=== PATIENT | male | born 1960 | race Caucasian/White ===

== ENCOUNTER 2019-03-09 07:08 | Inpatient (IN) ==
--- NOTE | 2019-02-14 15:12 | PAT Medication Instructions ---
Medication Instructions Date of Service February 14, 2019 Home Medications fluoxetine 20 mg PO QAM pantoprazole 40 mg PO QAM Take morning of surgery With a small sip of water, OTHERWISE NOTHING TO EAT OR DRINK AFTER MIDNIGHT: fluoxetine 20 mg PO QAM pantoprazole 40 mg PO QAM Other Notes If you have any questions please call us at [phone] or [phone] or [phone] or [phone]
--- NOTE | 2019-02-15 11:58 | Anesthesiology Consultation ---
Date of Service February 15, 2019 Assessment & Plan (1) Encounter for pre-operative examination: Awaiting surgeon-ordered PCP preop evaluation scheduled 02/2019 (Dr. Ferrer). Chart Review Chart Review: Patient seen in Pre Admission Testing Teaching & Discussion Pre-Anesthesia Teaching/Discussion Notes: Instructed NPO after midnight before surgery,except medications with 15 cc of water. Medication instructions provided according to the PAT guidelines. History Surgery Operation Date: 03/09/19 09:25 Proposed Procedures p Right Total Hip Arthroplasty - Sterling Hdz MD Height/Weight Height: 5 ft 6 in Weight: 75.1 kg Allergies Allergy/AdvReac Type Severity Reaction Status Date / Time Sulfa (Sulfonamide Allergy Severe HIVES, Unverified 02/15/19 12:19 Antibiotics) ITCHING Medications Home Medications Medication Instructions Recorded Confirmed Last Taken fluoxetine 20 mg PO QAM 02/13/19 02/13/19 Unknown pantoprazole 40 mg PO QAM 02/13/19 02/13/19 Unknown Past Medical History Medical History Anxiety Degenerative disc disease GERD (gastroesophageal reflux disease) Osteoarthritis Pre-diabetes Sleep apnea no device - insurance did not cover CPAP TMJ click Exercise / Class Metabolic Activity II 4-5 Yardwork/Stairs/Walk up hill Past Family History Family History Other Family history of diabetes mellitus Past Surgical History Surgical History History of amputation of finger Rt thumb, Rt index finger r/t farming accident History of colonoscopy History of hand surgery Rt - multiple surgeries r/t farming accident History of hernia repair as an History of tooth extraction Past Anesthesia History No Hx of Anesthesia Complications and No Family Hx of Anesthesia Complications History of PONV No Hx of PONV and No Hx of Motion Sickness Social History Smoking Status: Never smoker Do You Dip or Chew Tobacco: No (quit 5-6 years ago) Hx Alcohol Use: Yes Alcohol type: beer alcohol intake frequency: 0-2 drinks per day (1 beer/night) Hx Substance Use: No substance use type: does not use Review of Systems Patient denies chest pain, shortness of breath, dyspnea on exertion, cough, wheezing, palpitations. Physical Exam Vital Signs VITALS BP 120/76 P 66 TEMP 97.6 SP02 99%RA RESP 16 PHYSICAL Mildly decreased cervical extension Full TMJ range of motion. TMD 3 finger breaths Mallampati Score 3 Dentition: missing molars Lungs: clear throughout to auscultation Cardiac: regular rate and rhythm, no murmurs noted Spine: normal Carotid arteries: negative bruit Extremities: right hand (+ finger amputations) Testing Laboratory Results 02/15/19 12:35 02/15/19 12:35 PT 10.8 Seconds (9.0-12.0) 02/15/19 12:35 INR 1.1 (0.9-1.1) 02/15/19 12:35 Hemoglobin A1c 5.5 % (4.5-5.6) 02/15/19 12:35 Urine Color Yellow 02/15/19 Unknown Urine Appearance Clear (Clear) 02/15/19 Unknown Urine pH 5.5 (4.5-7.5) 02/15/19 Unknown Ur Specific [place] 1.023 (1.000-1.030) 02/15/19 Unknown Urine Protein Negative (Negative) 02/15/19 Unknown Urine Glucose (UA) Negative (Negative) 02/15/19 Unknown Urine Ketones 1+ (Negative) H 02/15/19 Unknown Urine Nitrite Negative (Negative) 02/15/19 Unknown Ur Leukocyte Esterase Negative (Negative) 02/15/19 Unknown Blood Type O Positive 02/15/19 12:35 Antibody Screen NEGATIVE 02/15/19 12:35 02/15/19 Unknown Urine Culture - Final Urine,Clean Catch Gram positive bacilli *No sensitivities to follow* Electrocardiogram Date: 02/15/19 NSR at 62bpm. Moderate voltage criteria for LVH, may be normal variant.
[2019-02-15 14:24] LABS: Basophils # (auto) 0.05 K/uL (0-0.2); Basophils % (auto) 0.7 %; Eosinophils # (auto) 0.07 K/uL (0-0.5); Hematocrit (blood only) 40.9 % (42-52); Hemoglobin 14.4 g/dL (14.0-18.0); Immature Granulocytes # (auto) 0.01 K/uL (0.00-0.02); Immature Granulocytes % (auto) 0.1 %; Lymphocytes # (auto) 1.55 K/uL (1.2-3.4); Lymphocytes % (auto) 21.4 %; Mean Corpuscular Hemoglobin 29.6 pg (25-34); Mean Corpuscular Hgb Conc 35.2 g/dL (32-36); Mean Corpuscular Volume 84.2 fL (80-100); Mean Platelet Volume 8.9 fL (7.4-10.4); Monocytes % (auto) 5.5 %; Neutrophils # (auto) 5.15 K/uL (1.4-6.5); Neutrophils % (auto) 71.3 %; Platelet Count 241 K/uL (130-400); RDW Coefficient of Variation 12.5 % (11.5-14.5); RDW Standard Deviation 38.2 fL (36.4-46.3); Red Blood Count 4.86 M/uL (4.7-6.1); White Blood Count 7.23 K/uL (4.8-10.8)
[2019-02-15 14:34] LABS: Albumin Level 3.7 gm/dl (3.4-5.0); BUN Creatinine Ratio 15.2 (10-20); Calcium 9.7 mg/dl (8.5-10.1); Creatinine Clr Calc Pharmacy 68.7 ml/min; Est GFR (African American) 88.8; Est GFR (Non-African American) 76.7; Estimated Average Glucose 111 mg/dl; Hemoglobin A1C 5.5 % (4.5-5.6); Potassium 4.2 mmol/L (3.5-5.1)
[2019-02-15 14:36] LABS: Appearance Urine Clear (Clear); Bilirubin Urine Negative (Negative); Blood Urine Negative (Negative); Color Urine Yellow; Glucose Urine UA Negative (Negative); Ketones Urine 1+ (Negative); Leukocyte Esterase Urine Negative (Negative); Nitrite Urine Negative (Negative); Protein Urine Negative (Negative); Specific Gravity Urine 1.023 (1.000-1.030); Urobilinogen Urine Negative (Negative); pH Urine 5.5 (4.5-7.5)
[2019-02-15 14:37] LABS: Albumin Globulin Ratio 0.9 (0.9-2); Bilirubin,Total 0.7 mg/dl (0.2-1); Total Protein 7.7 gm/dl (6.4-8.2)
[2019-02-15 14:39] LABS: INR 1.1 (0.9-1.1); Prothrombin Time 10.8 Seconds (9.0-12.0)
--- NOTE | 2019-02-15 15:16 | History & Physical Report ---
Date of Service February 15, 2019 Assessment & Plan (1) Osteoarthritis of right hip: DIAGNOSIS: Right hip osteoarthritis. PROCEDURE: Right total hip arthroplasty. PLAN: The patient is scheduled to undergo this procedure at the [facility] as an inpatient on 03/09/[address] Hdz serving as a surgeon. Risks and complications of the procedure such as infection, bleeding, pain, scarring, nerve and blood vessel damage, weakness, wound problems, stiffness, incomplete relief of symptoms, hardware failure, hardware loosening, wear, fracture, tendon or ligament injury, dislocation, leg length inequality, blood clots, embolism, heart attack, stroke and were explained to the patient during his visit today with Dr. Hdz. Informed consent to perform the procedure was obtained. We will also need to obtain preoperative medical clearance from the patient's primary care provider, Dr. Ferrer. He is scheduled to see him on 02/21. He will also need to obtain a preoperative CBC with differential, complete metabolic panel, PT, INR, blood type and screen, urinalysis, urine culture, EKG, hemoglobin A1c and a nasal culture for MRSA. The patient states he has his appointment with anesthesia at the hospital at 11:45 this morning and will receive the necessary testing at that time. The patient will be scheduled for his 2-week postoperative followup visit with myself on 03/24 at 2:30 in the afternoon. I advised the patient that we will provide him with prescriptions for pain medications, any anti-inflammatory medications upon discharge from the hospital. I advised him that he will be on aspirin 81 mg tablet twice daily for 30 days postoperatively for DVT prophylaxis. The patient states that he may have a walker that he can use, but if not, I did provide him with an order to obtain one. I also instructed him about purchasing a hip kit from either [employer] or [employer]. I provided the patient with the paperwork to obtain a handicap placard for his vehicle. We went over the hip arthroplasty packet. I advised him to review at home with his . I provided him with information about lectures that are offered by [facility] in regards to joint replacement surgery. We also talked about discharge planning and he will discuss with case management and will most likely choose to have in-home therapy for 2 weeks postoperatively. The patient was advised that he will need to take antibiotics before any dental cleanings or procedures for the remainder of his life after this surgery. I advised him that he will just need to contact our clinic and we can send a prescription to his pharmacy. The patient is to refrain from taking Advil for 7 days prior to the procedure. He can continue taking his Tylenol for pain control. I advised the patient that he will be admitted for overnight stay and as long as his pain is controlled and he does well with physical therapy, we will plan on discharging him on postoperative day 1. The patient verbalized understanding of all information provided during today's visit, thanked us for the care he has received and states if he has questions or concerns that should arise prior to his surgery date, he will contact the clinic accordingly History of Present Illness Chief Complaint: Right hip pain Primary Care Provider: Bradley Ferrer MD HISTORY OF PRESENT ILLNESS: This 58-year-old male presents to clinic today for his preoperative history and physical. The patient complains of a 4+ year history of persistent right-sided hip pain that is becoming increasingly worse over the past year. He denies any specific injury to the hip. He states that he has had steroid injections, physical therapy and used nonsteroidal agents without significant pain relief. The patient states that the pain in his hip makes it difficult for him to sleep. 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 He denies any numbness or tingling in the right lower extremity and feels that a hip replacement is necessary due to failed conservative treatments. PAST MEDICAL HISTORY: Sleep apnea, anxiety and depression, gastroesophageal reflux disease. PAST SURGICAL HISTORY: Right hand surgery and colonoscopy. FAMILY HISTORY: Positive for heart disease. ALLERGIES: THE PATIENT HAS ALLERGY TO SULFA MEDICATIONS. CURRENT MEDICATIONS USED: Fluoxetine 20 mg oral capsule 1 cap daily, pantoprazole 40 mg oral delayed release tablet 1 tab daily, [id number] Advil and [id number] Tylenol, both as needed for pain relief. SOCIAL HISTORY: The patient states that he used to be a smoker, but quit over 1 year ago, he consumes approximately 7 alcoholic beverages per week, but denies any illicit drug use. Allergies Allergy/AdvReac Type Severity Reaction Status Date / Time Sulfa (Sulfonamide Allergy Severe HIVES, Unverified 02/15/19 12:19 Antibiotics) ITCHING Home Medications Home Medications Medication Instructions Recorded Confirmed Type fluoxetine 20 mg PO QAM 02/13/19 02/13/19 History pantoprazole 40 mg PO QAM 02/13/19 02/13/19 History Past Med/Surg History Medical History Anxiety Degenerative disc disease GERD (gastroesophageal reflux disease) Osteoarthritis Pre-diabetes Sleep apnea no device - insurance did not cover CPAP TMJ click Surgical History History of amputation of finger Rt thumb, Rt index finger r/t farming accident History of colonoscopy History of hand surgery Rt - multiple surgeries r/t farming accident History of hernia repair as an infant History of tooth extraction Family History Other Family history of diabetes mellitus Social History Preferred Language: Slovenian Communication Ability: Effective Operations Systems Specialist Required: No Beliefs That Will Affect Care: None Current Living Situation: Spouse Feels Safe at Home: Yes Smoking Status: Never smoker Second Hand Exposure: Yes (as a child) ; Hx Alcohol Use: Yes Alcohol type: beer Hx Substance Use: No Review of Systems All systems reviewed & are unremarkable except as noted in HPI & below Physical Exam Physical Exam: PHYSICAL EXAMINATION: Vital signs: Height is 169.5 cm, weight is 76.9 kg, pulse is 77, oxygen saturation is 97%, temperature is 36.4 degrees Celsius, blood pressure is 128/70. Skin: The patient's skin is normal in appearance. No open skin lesions or discharge. Eyes: Pupils are equal and reactive to light and accommodating. Extraocular movements are intact. Throat: Posterior pharynx is clear with absence of edema, erythema or exudate. Cardiovascular exam: The patient has a regular rate and rhythm with no murmurs or gallops appreciated. Lungs: Auscultation of lung galeas reveals clear breath sounds throughout, no wheezing, rales or rhonchi. Abdomen is nonobese, nondistended, nontender with normoactive bowel sounds. Extremities: Right hip, flexion is limited to 90 degrees, external rotation to 45 degrees, internal rotation to negative 15 degrees. Stinchfield and log roll test are both positive. The patient experiences referred pain to the groin with passive abduction and adduction of the hip. He has no tenderness over the lateral posterior aspect of the hip over the greater trochanter, but does have tenderness to deep palpation in the groin. The patient is neurovascularly intact in the right lower extremity. Neurological exam: Cranial nerves 2-12 are intact. No motor or sensory deficit. Psychological/general exam: The patient is alert and oriented x3 with proper grooming and hygiene. Results & Data Laboratory Results 02/15/19 02/15/19 02/15/19 Range/Units Unknown Unknown 12:35 WBC (4.8-10.8) K/uL RBC (4.7-6.1) M/uL Hgb (14.0-18.0) g/dL Hct (42-52) % MCV (80-100) fL MCH (25-34) pg MCHC (32-36) g/dL RDW Std Deviation (36.4-46.3) fL RDW Coeff of Michelle (11.5-14.5) % Plt Count (130-400) K/uL MPV (7.4-10.4) fL Immature Gran % (Auto) % Neut % (Auto) % Lymph % (Auto) % Cassia % (Auto) % Eos % (Auto) % Baso % (Auto) % Immature Gran # (Auto) (0.00-0.02) K/uL Neut # (Auto) (1.4-6.5) K/uL Lymph # (Auto) (1.2-3.4) K/uL Cassia # (Auto) (0.11-0.59) K/uL Eos # (Auto) (0-0.5) K/uL Baso # (Auto) (0-0.2) K/uL PT (9.0-12.0) Seconds INR (0.9-1.1) Sodium (136-145) mmol/L Potassium (3.5-5.1) mmol/L Chloride (98-107) mmol/L Carbon Dioxide (21-32) mmol/L Anion Gap (3-11) BUN (7-18) mg/dl Creatinine (0.6-1.4) mg/dl Est Cr Clr Drug Dosing ml/min Est GFR ( Amer) Est GFR (Non-Af Amer) BUN/Creatinine Ratio (10-20) Glucose (70-99) mg/dl Estimat Average Glucose mg/dl Hemoglobin A1c (4.5-5.6) % Calcium (8.5-10.1) mg/dl Total Bilirubin (0.2-1) mg/dl AST (15-37) U/L ALT (12-78) U/L Alkaline Phosphatase (45-117) U/L Total Protein (6.4-8.2) gm/dl Albumin (3.4-5.0) gm/dl Globulin (2.5-4.0) gm/dl Albumin/Globulin Ratio (0.9-2) Urine Color Yellow Urine Appearance Clear (Clear) Urine pH 5.5 (4.5-7.5) Ur Specific [place] 1.023 (1.000-1.030) Urine Protein Negative (Negative) Urine Glucose (UA) Negative (Negative) Urine Ketones 1+ H (Negative) Urine Blood Negative (Negative) Urine Nitrite Negative (Negative) Urine Bilirubin Negative (Negative) Urine Urobilinogen Negative (Negative) Ur Leukocyte Esterase Negative (Negative) Nasal Screen MRSA (PCR) Pending Blood Type Pending Antibody Screen Pending 02/15/19 02/15/19 02/15/19 Range/Units 12:35 12:35 12:35 WBC (4.8-10.8) K/uL RBC (4.7-6.1) M/uL Hgb (14.0-18.0) g/dL Hct (42-52) % MCV (80-100) fL MCH (25-34) pg MCHC (32-36) g/dL RDW Std Deviation (36.4-46.3) fL RDW Coeff of Michelle (11.5-14.5) % Plt Count (130-400) K/uL MPV (7.4-10.4) fL Immature Gran % (Auto) % Neut % (Auto) % Lymph % (Auto) % Cassia % (Auto) % Eos % (Auto) % Baso % (Auto) % Immature Gran # (Auto) (0.00-0.02) K/uL Neut # (Auto) (1.4-6.5) K/uL Lymph # (Auto) (1.2-3.4) K/uL Cassia # (Auto) (0.11-0.59) K/uL Eos # (Auto) (0-0.5) K/uL Baso # (Auto) (0-0.2) K/uL PT 10.8 (9.0-12.0) Seconds INR 1.1 (0.9-1.1) Sodium 139 (136-145) mmol/L Potassium 4.2 (3.5-5.1) mmol/L Chloride 106 (98-107) mmol/L Carbon Dioxide 25 (21-32) mmol/L Anion Gap 8.0 (3-11) BUN 16 (7-18) mg/dl Creatinine 1.07 (0.6-1.4) mg/dl Est Cr Clr Drug Dosing 68.7 ml/min Est GFR ( Amer) 88.8 Est GFR (Non-Af Amer) 76.7 BUN/Creatinine Ratio 15.2 (10-20) Glucose 88 (70-99) mg/dl Estimat Average Glucose 111 mg/dl Hemoglobin A1c 5.5 (4.5-5.6) % Calcium 9.7 (8.5-10.1) mg/dl Total Bilirubin 0.7 (0.2-1) mg/dl AST 19 (15-37) U/L ALT 18 (12-78) U/L Alkaline Phosphatase 81 (45-117) U/L Total Protein 7.7 (6.4-8.2) gm/dl Albumin 3.7 (3.4-5.0) gm/dl Globulin 4.0 (2.5-4.0) gm/dl Albumin/Globulin Ratio 0.9 (0.9-2) Urine Color Urine Appearance (Clear) Urine pH (4.5-7.5) Ur Specific [place] (1.000-1.030) Urine Protein (Negative) Urine Glucose (UA) (Negative) Urine Ketones (Negative) Urine Blood (Negative) Urine Nitrite (Negative) Urine Bilirubin (Negative) Urine Urobilinogen (Negative) Ur Leukocyte Esterase (Negative) Nasal Screen MRSA (PCR) Blood Type Antibody Screen 02/15/19 Range/Units 12:35 WBC 7.23 (4.8-10.8) K/uL RBC 4.86 (4.7-6.1) M/uL Hgb 14.4 (14.0-18.0) g/dL Hct 40.9 L (42-52) % MCV 84.2 (80-100) fL MCH 29.6 (25-34) pg MCHC 35.2 (32-36) g/dL RDW Std Deviation 38.2 (36.4-46.3) fL RDW Coeff of Michelle 12.5 (11.5-14.5) % Plt Count 241 (130-400) K/uL MPV 8.9 (7.4-10.4) fL Immature Gran % (Auto) 0.1 % Neut % (Auto) 71.3 % Lymph % (Auto) 21.4 % Cassia % (Auto) 5.5 % Eos % (Auto) 1.0 % Baso % (Auto) 0.7 % Immature Gran # (Auto) 0.01 (0.00-0.02) K/uL Neut # (Auto) 5.15 (1.4-6.5) K/uL Lymph # (Auto) 1.55 (1.2-3.4) K/uL Cassia # (Auto) 0.40 (0.11-0.59) K/uL Eos # (Auto) 0.07 (0-0.5) K/uL Baso # (Auto) 0.05 (0-0.2) K/uL PT (9.0-12.0) Seconds INR (0.9-1.1) Sodium (136-145) mmol/L Potassium (3.5-5.1) mmol/L Chloride (98-107) mmol/L Carbon Dioxide (21-32) mmol/L Anion Gap (3-11) BUN (7-18) mg/dl Creatinine (0.6-1.4) mg/dl Est Cr Clr Drug Dosing ml/min Est GFR ( Amer) Est GFR (Non-Af Amer) BUN/Creatinine Ratio (10-20) Glucose (70-99) mg/dl Estimat Average Glucose mg/dl Hemoglobin A1c (4.5-5.6) % Calcium (8.5-10.1) mg/dl Total Bilirubin (0.2-1) mg/dl AST (15-37) U/L ALT (12-78) U/L Alkaline Phosphatase (45-117) U/L Total Protein (6.4-8.2) gm/dl Albumin (3.4-5.0) gm/dl Globulin (2.5-4.0) gm/dl Albumin/Globulin Ratio (0.9-2) Urine Color Urine Appearance (Clear) Urine pH (4.5-7.5) Ur Specific [place] (1.000-1.030) Urine Protein (Negative) Urine Glucose (UA) (Negative) Urine Ketones (Negative) Urine Blood (Negative) Urine Nitrite (Negative) Urine Bilirubin (Negative) Urine Urobilinogen (Negative) Ur Leukocyte Esterase (Negative) Nasal Screen MRSA (PCR) Blood Type Antibody Screen
[~2019-03-09 07:08] MED LIST: ACETAMINOPHEN 500 MG TAB PO SCH; BUPIVACAINE 0.5 % 5 MG/1 ML PF 10ML VIAL ONE; CEFAZOLIN 2000MG 2,000 MG/15 ML SYR IV SCH; FAMOTIDINE 20 MG TAB PO SCH; LR 500ML BOLUS, THEN 15ML/HR IV SCH; LR 60ML/HR IV SCH; METOCLOPRAMIDE HCL 10 MG TABLET PO SCH; ROPIVACAINE 0.5% HCL/PF 150 MG, BUPIVACAINE 0.5% MPF 30 ML, EPINEPHrine 0.15 MG, Ketoro... INFIL SCH; SCOPOLAMINE 1.5 MG TDSY TD SCH; TRAMADOL HCL 50 MG TABLET PO SCH; TRANEXAMIC ACID 1,000 MG **IV Intra-op IV SCH; TRANEXAMIC ACID 1,000 MG **IV Pre-op IV SCH; dexAMETHasone 4 MG TAB PO SCH
[2019-03-09] MEDS ORDERED: TRANEXAMIC ACID / 0.7% NACL 1000MG/100ML BAG IV ONE (08:26)
[2019-03-09] MEDS ORDERED: fentaNYL citrate 100 MCG/2 ML VIAL ONE (08:34)
[2019-03-09] MEDS ORDERED: PROPOFOL IV EMULSION 10 MG/ML 20 ML VIAL IV ONE (08:34)
[2019-03-09] MEDS ORDERED: LIDOCAINE HCL 2% 2 ML VIAL/AMP(20MG/ML) INFIL ONE (08:34)
[2019-03-09] MEDS ORDERED: MIDAZOLAM HCL 1 MG/ML 2ML VIAL ONE ×2 (08:34→09:47)
--- NOTE | 2019-03-09 09:08 | History & Physical Bridge Note ---
Date of Service March 09, 2019 History & Physical Bridge Note I have examined the patient, reviewed the History & Physical and in the interval since the performance of the History & Physical I have noted the following changes of clinical significance: no changes noted
[2019-03-09] MEDS ORDERED: ORTHO JOINT ANESTHETIC ONE (09:20)
[2019-03-09] MEDS ORDERED: fentaNYL citrate 100 MCG/2 ML VIAL IV PRN (09:45)
[2019-03-09] MEDS ORDERED: ePHEDrine sulfate 50 MG/ML AMP IV PRN (09:45)
[2019-03-09] MEDS ORDERED: ATROPINE SULFATE 0.1 MG/ML 10ML SYR IV PRN (09:45)
[2019-03-09] MEDS ORDERED: ONDANSETRON INJ 2 MG/ML 2 ML VIAL IV PRN ×2 (09:45→11:24)
--- NOTE | 2019-03-09 11:02 | Post Operative Brief Note ---
Immediate Post Op Note v1 Date of Surgery March 09, 2019 Pre & Post Diagnosis Operation Date: 03/09/19 09:25 Pre-Op Diagnosis: Right Hip Arthritis Post-Op Diagnosis: Right Hip Arthritis I identified the patient and participated in the time-out.: Yes Procedure Operation Date: 03/09/19 09:25 Actual Procedures p Right Total Hip Arthroplasty(Right) - Sterling Hdz MD Surgeon Sterling Hdz MD Machining Engineer Giancarlo Castro MD and DAHIANA Winters PA-C Estimated Blood Loss 100 Findings Consistent with Post-Op Diagnosis Fluids 1000 Specimens Femoral head Anesthesia Type Spinal MAC Complications none Disposition Accompanied Patient To Recovery: No Disposition: Recovery Room
[2019-03-09] MEDS ORDERED: bisacodyL 10 MG SUPP PR PRN (11:24)
[2019-03-09] MEDS ORDERED: HYDROmorphone INJ 0.5 MG/0.5 ML SYR IV PRN (11:24)
[2019-03-09] MEDS ORDERED: NALOXONE HCL 0.4 MG/1 ML VIAL/CARP IV PRN (11:24)
[2019-03-09] MEDS ORDERED: METOCLOPRAMIDE HCL INJ 5 MG/ML 2 ML VIAL IV PRN (11:24)
[2019-03-09] MEDS ORDERED: MAGNESIUM HYDROXIDE SUSP 30 ML UDC PO PRN (11:24)
[2019-03-09] MEDS ORDERED: TAMSULOSIN HCL 0.4 MG CAP PO PRN (11:24)
[2019-03-09] MEDS ORDERED: ALUMINUM/MAGNESIUM SUSP 30 ML UDC PO PRN (11:24)
[2019-03-09] MEDS ORDERED: TRAMADOL HCL 50 MG TABLET PO PRN (11:24)
[2019-03-09] MEDS ORDERED: DiphenhydrAMINE HCL 50 MG/ML VIAL IV PRN (11:24)
--- NOTE | 2019-03-09 11:24 | Operative Report ---
Post Operative Report Pre & Post Diagnosis Operation Date: 03/09/19 09:25 Pre-Op Diagnosis: Right Hip Arthritis Post-Op Diagnosis: Right Hip Arthritis I identified the patient and participated in the time-out.: Yes Procedure Operation Date: 03/09/19 09:25 Actual Procedures p Right Total Hip Arthroplasty(Right) - Sterling Hdz MD Surgeon Sterling Hdz MD Door Operator Giancarlo Castro MD and DAHIANA Winters PA-C Estimated Blood Loss 100 Findings Consistent with Post-Op Diagnosis Specimens Right femoral head Complications none Disposition Accompanied Patient To Recovery: Yes Disposition: Recovery Room Description of Procedure I was present during the entire procedure assisting with wound closure and dressing application. Please see Dr. Hdz procedure note for specifics of the case. I attest to the content of the Intraoperative Record and any orders documented therein. Any exceptions are noted below.
[2019-03-09] MEDS ORDERED: IBUPROFEN 200 MG TAB PO PRN (11:27)
[2019-03-09] MEDS ORDERED: LORATADINE 10 MG TAB PO PRN (11:27)
--- NOTE | 2019-03-09 11:38 | Operative Report ---
Post Operative Report Pre & Post Diagnosis Operation Date: 03/09/19 09:25 Pre-Op Diagnosis: Right Hip Arthritis Post-Op Diagnosis: Right Hip Arthritis I identified the patient and participated in the time-out.: Yes Procedure Operation Date: 03/09/19 09:25 Actual Procedures p Right Total Hip Arthroplasty(Right) - Sterling Hdz MD Surgeon Sterling Hdz MD Supervisor Costuming Giancarlo Castro MD and DAHIANA Winters PA-C Estimated Blood Loss 100 Findings Consistent with Post-Op Diagnosis Specimens R femoral head Complications none Disposition Accompanied Patient To Recovery: Yes Disposition: Recovery Room Description of Procedure Lateral decubitus position, standard prep and drape, Time out Right Total Hip Arthroplasty Please see Dr Hdz's procedure notes for specific details I was present throughout the case, assisted for wound closure and transferred the patient to PACU in stable condition I attest to the content of the Intraoperative Record and any orders documented therein. Any exceptions are noted below.
--- NOTE | 2019-03-09 11:44 | Operative Report ---
DATE OF OPERATION: 03/09/2019 PREOPERATIVE DIAGNOSIS: Right hip osteoarthritis. POSTOPERATIVE DIAGNOSIS: Right hip osteoarthritis. OPERATIONS PERFORMED: Right total hip arthroplasty. SURGEON: Sterling Hdz MD. DIE CAST ENGINEER: Giancarlo Castro MD and Ange Winters PA-C. ESTIMATED BLOOD LOSS: 100 mL. INTRAVENOUS FLUIDS: 1000 mL of crystalloid. SPECIMENS: Femoral head. COMPLICATIONS: None. IMPLANTS: 1. DePuy [place] Gription acetabular shell sector cup 56 mm outer diameter. 2. DePuy [place] cancellous bone screw 6.5 mm x 25 mm. 3. [place] Ultrex polyethylene liner neutral for a 36-mm femoral head. 4. DePuy [place] size 5 high-offset stem. 5. Biolox delta ceramic femoral head 36 mm diameter with a +8.5 mm offset. 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 X-rays demonstrate complete obliteration of his superior joint space with beginnings of bone loss in the superolateral acetabulum. I had a long discussion with him about the risks and benefits of surgery, alternatives to surgery and expected outcomes. After reviewing all these, he elected to proceed with surgery. All questions were answered. Informed consent was signed. OPERATIVE FINDINGS: Routine osteoarthritis of the hip. He had a large amount of offset. A ceramic on polyethylene bearing total hip arthroplasty was performed through a posterior approach. DESCRIPTION OF THE OPERATION: The patient was identified in the preoperative holding area where his surgical site was marked. He was given a spinal anesthetic and then brought back to the main operating room where he was placed on the operating room table and moved in the lateral decubitus position. Axillary roll was placed. All bony prominences were padded. Perioperative antibiotics were administered. He was prepped and draped in the normal sterile fashion. Prior to incision, a multidisciplinary timeout was called. All in the room were in agreement. We began by making a 12 cm long incision for a posterior approach to the hip. Fascia was incised in line with the incision. Charnley bow was placed. Trochanteric bursa was excised. Piriformis and short external rotators were dissected off the posterior aspect of the hip capsule. A box cut was made in the hip capsule. The femoral head was dislocated. Femoral neck cut was made at 10 mm, which was our preoperative template. We then removed the femoral head and sent it to pathology. The acetabulum was exposed. The labrum was sharply excised. He had some superior lateral deficiency of the acetabular rim as noted from his preoperative x-rays. He had a large inferior osteophyte as well. The contents of the cotyloid fossa were then removed and he had a large medial osteophyte. We had templated him to a size 56 cup and so we started with a 48 mm reamer. This was used to medialize his acetabulum. We then sequentially reamed him up all the way to a size 56 mm reamer. This gave us a good healthy cancellous bleeding bone. The acetabulum was then irrigated out. The Gription 56 mm outer diameter sector cup was then opened up and impacted into position with 40 degrees of lateral opening and 25 degrees of anteversion. A single cancellous bone screw was placed up into the ilium. The trial liner was then placed. We then removed anterior and inferior osteophytes, which were present. Next, we turned our attention to the femur. The abductors were protected and a Coulter retractor was used to elevate the femoral head. Lateral neck was removed with a box osteotome. The intramedullary guide was used followed by the lateralizing reamer. We then reamed him up between a 5 and a 6 [place] stem. We then broached him all the way up to a size 5. Here, we had good fill of the calcar as well as the excellent torsional stability. We then started trialing with a size 6 high-offset neck. We initially started with a +5 head. We had measured his lesser troch to center of the head distance on his [place] head before making our femoral neck cut and it was 63 mm. With the +5 head, he was at about 61 mm. We reduced the hip and his leg lengths were very close to symmetric. He had good stability; however, I wanted to better create his [place] offset and therefore, we upsized him to a +8.5 mm head. Here, we had symmetric leg lengths, maybe a touch lengthened by a millimeter or so. I elected to use this as it gave us our lesser trochanter to center head distance of 63 mm matching his [place] anatomy. Stability examination with these components in position showed no impingement with extension and external rotation of 30 degrees. His shuck test was appropriate. He was stable in the sleeper position. At 90 degrees of hip flexion, he could be internally rotated 75 degrees before leaving out of the cup. I was very happy with the stability exam. Therefore, we removed the trial polyethylene liner and trial femoral components. The real polyethylene liner for a 36-mm femoral head was then inserted and impacted. The locking mechanism was checked to ensure that had engaged, which it had. We then opened up the size 5 high-offset [place] femoral stem and impacted into position. It sat at the same level as the broach. Therefore, we opened up the +8.5 mm ceramic femoral head, 36 mm diameter. This was gently impacted onto the trunnion. The hip was then atraumatically reduced. We again checked his leg lengths and we were very happy. Next, the wound was irrigated out with a dilute Betadine solution. The periarticular injection was placed. His piriformis and short external rotators as well as the posterior capsule were repaired through bone tunnels in the posterior aspect of the greater trochanter using #2 Vicryl. The fascia was run with a looped #1 PDS. The subcutaneous layer was closed with a running #1 PDS. Deep dermal layer was closed with 2-0 Vicryl. ZipLine was placed followed by a Silverlon dressing. Compressive dressing was placed over the top. The patient was then carefully rolled supine and his leg lengths were once again checked and were symmetric. An abduction pillow was then placed. He was then transferred to the recovery room in stable condition. POSTOPERATIVE COURSE: The patient will be admitted overnight for pain control and monitoring. He will work with physical therapy. He is weightbearing as tolerated with posterior hip precautions. Aspirin for DVT prophylaxis. Plan on discharge home tomorrow. I attest to the content of the Intraoperative Record and any orders documented therein. Any exception s are noted below.
--- NOTE | 2019-03-09 12:07 | Anesthesiology Progress Note ---
Date of Service March 09, 2019 Anesthesia Post Procedure Vital Signs Vital Signs: Temp Pulse Pulse Resp BP BP Pulse Ox 03/09/19 12:00 67 16 106/74 98 03/09/19 11:50 36.3 C L 69 13 117/63 99 03/09/19 11:40 80 21 112/61 99 03/09/19 11:30 74 13 112/62 99 03/09/19 11:24 36.5 C 83 16 117/66 99 03/09/19 07:35 36.5 C 72 20 123/81 99 Pain Intensity Right Hip: Pain Intensity: 0 Transfer of Care Handoff Completed per policy Notes Mental Status: alert / awake / arousable and participated in evaluation Nausea / Vomiting: adequately controlled Pain: adequately controlled Airway Patency, RR, SpO2: stable & adequate BP & HR: stable & adequate Hydration State: stable & adequate Neuraxial Anesthesia: was administered and sensory block is resolving Anesthetic Complications: no major complications apparent and Pt Satisfied with anesthetic care
--- NOTE | 2019-03-09 12:15 | XRay Report ---
AP PELVIS, CROSSTABLE LATERAL RIGHT HIP History: Right total hip arthroplasty. Degenerative arthritis. Postop. FINDINGS: The patient is status post a right total hip arthroplasty. The hardware is intact. No fract ure or dislocation. IMPRESSION: Right total hip arthroplasty. No evidence for hardware complication ACT 112: Negative or not required by law. Electronically signed by: Mahad Sotomayor M.D. 03/09/2019 12:14 PM
[2019-03-09] MEDS: ACETAMINOPHEN 500 MG TAB PO SCH ×2 (13:52→20:53)
[2019-03-09] MEDS: KETOROLAC 30 MG/ML VIAL IV SCH ×2 (13:52→20:26)
[2019-03-09] MEDS: SODIUM CHLORIDE 0.9% 1000ML 1,000 ML IV SCH ×2 (13:56→22:44)
[2019-03-09] MEDS: CHECK SCOPOLAMINE PATCH PLACEMENT SCH (15:08)
[2019-03-09] MEDS: CEFAZOLIN 2000MG 2,000 MG/15 ML SYR IV SCH (17:07)
[2019-03-09] MEDS ORDERED: TRANEXAMIC ACID / 0.7% NACL 1,000 MG/100 ML BAG IV SCH (17:26)
[2019-03-09] MEDS: DOCUSATE SODIUM 100 MG CAP PO SCH (20:27)
[2019-03-09] MEDS: ASPIRIN 81 MG ECTAB PO SCH (20:27)
[2019-03-09] MEDS: OXYCODONE HCL IR 5 MG TAB (IMMEDIATE RELEASE) PO PRN (20:52)
[2019-03-09] MEDS ORDERED: SENNA 8.6 MG TAB PO SCH (21:00)
[2019-03-10] MEDS: CHECK SCOPOLAMINE PATCH PLACEMENT SCH (00:07)
[2019-03-10] MEDS: SODIUM CHLORIDE 0.9% 1000ML 1,000 ML IV SCH (00:08)
[2019-03-10] MEDS: CEFAZOLIN 2000MG 2,000 MG/15 ML SYR IV SCH (01:31)
[2019-03-10] MEDS: KETOROLAC 30 MG/ML VIAL IV SCH ×2 (01:32→08:55)
[2019-03-10] MEDS: OXYCODONE HCL IR 5 MG TAB (IMMEDIATE RELEASE) PO PRN (04:20)
[2019-03-10 06:05] LABS: Basophils # (auto) 0.01 K/uL (0-0.2); Basophils % (auto) 0.1 %; Eosinophils # (auto) 0.01 K/uL (0-0.5); Eosinophils % (auto) 0.1 %; Hematocrit (blood only) 32.3 % (42-52); Hemoglobin 11.2 g/dL (14.0-18.0); Immature Granulocytes # (auto) 0.02 K/uL (0.00-0.02); Immature Granulocytes % (auto) 0.2 %; Lymphocytes # (auto) 1.43 K/uL (1.2-3.4); Lymphocytes % (auto) 11.3 %; Mean Corpuscular Hemoglobin 29.6 pg (25-34); Mean Corpuscular Hgb Conc 34.7 g/dL (32-36); Mean Corpuscular Volume 85.2 fL (80-100); Mean Platelet Volume 8.9 fL (7.4-10.4); Monocytes # (auto) 1.14 K/uL (0.11-0.59); Neutrophils # (auto) 10.02 K/uL (1.4-6.5); Neutrophils % (auto) 79.3 %; Platelet Count 199 K/uL (130-400); RDW Coefficient of Variation 12.8 % (11.5-14.5); RDW Standard Deviation 39.3 fL (36.4-46.3); Red Blood Count 3.79 M/uL (4.7-6.1); White Blood Count 12.63 K/uL (4.8-10.8)
[2019-03-10] MEDS: ACETAMINOPHEN 500 MG TAB PO SCH (06:15)
[2019-03-10 06:41] LABS: BUN Creatinine Ratio 15.9 (10-20); Calcium 8.4 mg/dl (8.5-10.1); Creatinine Clr Calc Pharmacy 63.4 ml/min; Est GFR (African American) 80.6; Est GFR (Non-African American) 69.5; Potassium 4.4 mmol/L (3.5-5.1)
[2019-03-10 07:34] VITALS: TEMP 97.7; O2SAT 100
--- NOTE | 2019-03-10 07:48 | Anesthesiology Progress Note ---
Date of Service March 10, 2019 Anesthesia Post Procedure Vital Signs Vital Signs: Temp Pulse Pulse Resp BP Pulse Ox 03/10/19 07:30 36.5 C 45 L 16 89/52 L 100 03/10/19 03:35 36.6 C 54 L 16 100/59 L 97 03/09/19 23:19 36.7 C 56 L 16 107/57 L 97 03/09/19 19:47 36.6 C 53 L 18 100/60 99 03/09/19 15:28 36.7 C 57 L 18 102/63 97 03/09/19 14:40 99/59 L 03/09/19 14:36 36.7 C 60 18 92/48 L 99 03/09/19 13:25 36.4 C L 58 L 18 98/53 L 97 03/09/19 12:54 36.5 C 62 18 93/57 L 97 03/09/19 12:25 36.9 C 67 15 101/55 L 99 03/09/19 12:00 67 16 106/74 98 03/09/19 11:50 36.3 C L 69 13 117/63 99 03/09/19 11:40 80 21 112/61 99 03/09/19 11:30 74 13 112/62 99 03/09/19 11:24 36.5 C 83 16 117/66 99 Pain Intensity Right Hip: Pain Intensity: 4 Notes Mental Status: alert / awake / arousable and participated in evaluation Patient Amnestic to Procedure: Yes Nausea / Vomiting: adequately controlled Pain: adequately controlled Airway Patency, RR, SpO2: stable & adequate BP & HR: stable & adequate Hydration State: stable & adequate Neuraxial Anesthesia: was administered and sensory block resolved Anesthetic Complications: no major complications apparent
[2019-03-10] MEDS ORDERED: dexAMETHasone 4 MG TAB PO SCH (08:00)
[2019-03-10] MEDS: DOCUSATE SODIUM 100 MG CAP PO SCH (08:55)
[2019-03-10] MEDS: ASPIRIN 81 MG ECTAB PO SCH (08:55)
[2019-03-10] MEDS ORDERED: PANTOprazole 40 MG TAB PO SCH (09:00)
[2019-03-10] MEDS ORDERED: FLUOXETINE HCL 20 MG CAP PO SCH (09:00)
[2019-03-10] MEDS ORDERED: MULTIVITAMIN TAB PO SCH (09:00)
--- NOTE | 2019-03-10 10:42 | Orthopedic Progress Note ---
Date of Service March 10, 2019 Assessment & Plan (1) S/P total hip arthroplasty: Total hip precautions Had inhouse PT/OT Pain control with PO meds DVT prophy with Aspirin and TEDs Abduction pillow use for 6 wks Ice with EZ wrap WBAT with walker assistance In home PT F/u at [facility] as scheduled in 2 wks With questions call Subjective Patient is day 1 s/p Right total hip arthroplasty. Doing very well. States rolando t PT/OT went well this AM. He is ready to go home. Patient denies CP, SOB, nausea, vomiting, fever, chills, sweat or lethargy. States that hip pain is well controlled with PO meds. Review of Systems Review of Systems: All systems reviewed & are unremarkable except as noted in HPI & below Physical Exam Physical Exam: Right hip: Dressing clean, dry and intact. No drainage. NV intact. Quad strength 4/5. Able to SLRT and dorsi/plantar flex foot. Calf soft supple. Neg log roll. No pain with very light passive internal/external rotation. Results & Data Vital Signs (Past 12 Hours) Vital Signs Temp Pulse Resp BP Pulse Ox 03/10/19 07:30 36.5 C 45 L 16 89/52 L 100 03/10/19 03:35 36.6 C 54 L 16 100/59 L 97 03/09/19 23:19 36.7 C 56 L 16 107/57 L 97 Laboratory Results 03/10/19 03/10/19 03/10/19 Range/Units 05:42 05:42 05:42 WBC 12.63 H (4.8-10.8) K/uL RBC 3.79 L (4.7-6.1) M/uL Hgb 11.2 L (14.0-18.0) g/dL Hct 32.3 L (42-52) % MCV 85.2 (80-100) fL MCH 29.6 (25-34) pg MCHC 34.7 (32-36) g/dL RDW Std Deviation 39.3 (36.4-46.3) fL RDW Coeff of Michelle 12.8 (11.5-14.5) % Plt Count 199 (130-400) K/uL MPV 8.9 (7.4-10.4) fL Immature Gran % (Auto) 0.2 % Neut % (Auto) 79.3 % Lymph % (Auto) 11.3 % [place] % (Auto) 9.0 % Eos % (Auto) 0.1 % Baso % (Auto) 0.1 % Immature Gran # (Auto) 0.02 (0.00-0.02) K/uL Neut # (Auto) 10.02 H (1.4-6.5) K/uL Lymph # (Auto) 1.43 (1.2-3.4) K/uL [place] # (Auto) 1.14 H (0.11-0.59) K/uL Eos # (Auto) 0.01 (0-0.5) K/uL Baso # (Auto) 0.01 (0-0.2) K/uL Sodium 138 (136-145) mmol/L Potassium 4.4 (3.5-5.1) mmol/L Chloride 108 H (98-107) mmol/L Carbon Dioxide 26 (21-32) mmol/L Anion Gap 4.0 (3-11) BUN 18 (7-18) mg/dl Creatinine 1.16 (0.6-1.4) mg/dl Est Cr Clr Drug Dosing 63.4 ml/min Est GFR ( Amer) 80.6 Est GFR (Non-Af Amer) 69.5 BUN/Creatinine Ratio 15.9 (10-20) Glucose 132 H (70-99) mg/dl Calcium 8.4 L (8.5-10.1) mg/dl Hepatitis C Ab Screen Neg (Neg)
--- NOTE | 2019-03-10 10:53 | Discharge Summary ---
Date of Service March 10, 2019 Admission HPI Per Admitting Provider HISTORY OF PRESENT ILLNESS: This 58-year-old male presents to clinic today for his preoperative history and physical. The patient complains of a 4+ year history of persistent right-sided hip pain that is becoming increasingly worse over the past year. He denies any specific injury to the hip. He states that he has had steroid injections, physical therapy and used nonsteroidal agents without significant pain relief. The patient states that the pain in his hip makes it difficult for him to sleep. 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 He denies any numbness or tingling in the right lower extremity and feels that a hip replacement is necessary due to failed conservative treatments. PAST MEDICAL HISTORY: Sleep apnea, anxiety and depression, gastroesophageal reflux disease. PAST SURGICAL HISTORY: Right hand surgery and colonoscopy. FAMILY HISTORY: Positive for heart disease. ALLERGIES: THE PATIENT HAS ALLERGY TO SULFA MEDICATIONS. CURRENT MEDICATIONS USED: Fluoxetine 20 mg oral capsule 1 cap daily, pantoprazole 40 mg oral delayed release tablet 1 tab daily, [id number] Advil and [id number] Tylenol, both as needed for pain relief. SOCIAL HISTORY: The patient states that he used to be a smoker, but quit over 1 year ago, he consumes approximately 7 alcoholic beverages per week, but denies any illicit drug use. Admission Exam Per Admitting Provider PHYSICAL EXAMINATION: Vital signs: Height is 169.5 cm, weight is 76.9 kg, pulse is 77, oxygen saturation is 97%, temperature is 36.4 degrees Celsius, blood pressure is 128/70. Skin: The patient's skin is normal in appearance. No open skin lesions or discharge. Eyes: Pupils are equal and reactive to light and accommodating. Extraocular movements are intact. Throat: Posterior pharynx is clear with absence of edema, erythema or exudate. Cardiovascular exam: The patient has a regular rate and rhythm with no murmurs or gallops appreciated. Lungs: Auscultation of lung galeas reveals clear breath sounds throughout, no wheezing, rales or rhonchi. Abdomen is nonobese, nondistended, nontender with normoactive bowel sounds. Extremities: Right hip, flexion is limited to 90 degrees, external rotation to 45 degrees, internal rotation to negative 15 degrees. Stinchfield and log roll test are both positive. The patient experiences referred pain to the groin with passive abduction and adduction of the hip. He has no tenderness over the lateral posterior aspect of the hip over the greater trochanter, but does have tenderness to deep palpation in the groin. The patient is neurovascularly intact in the right lower extremity. Neurological exam: Cranial nerves 2-12 are intact. No motor or sensory deficit. Psychological/general exam: The patient is alert and oriented x3 with proper grooming and hygiene. Principal Diagnosis Right hip osteoarthritis Discharge Exam Right hip: Dressing clean, dry and intact. No drainage. NV intact. Quad strength 4/5. Able to SLRT and dorsi/plantar flex foot. Calf soft supple. Neg log roll. No pain with very light passive internal/external rotation. Discharge Data Allergies Allergy/AdvReac Type Severity Reaction Status Date / Time Sulfa (Sulfonamide Allergy Severe HIVES, Verified 03/09/19 08:19 Antibiotics) ITCHING Consultations 03/10/19 08:00 Consult Case Management - Discharge Planning Routine Procedures Performed Operation Date: 03/09/19 09:25 Actual Procedures p Right Total Hip Arthroplasty(Right) - Sterling Hdz MD Hospital Course (1) S/P total hip arthroplasty: Patient did very well overnight w/o complications. Pain well controlled with PO meds. Did well with PT/OT. Ready to be discharge home with home health services. Total hip precautions Had inhouse PT/OT Pain control with PO meds DVT prophy with Aspirin and TEDs Abduction pillow use for 6 wks Ice with EZ wrap WBAT with walker assistance In home PT F/u at [facility] as scheduled in 2 wks With questions call Total Time Total Time Spent Total Time Spent (In Minutes): 20 mins Total Time Includes: Examination of the Patient, Discharge Planning, Medication Reconciliation and Communication With Other Providers Discharge Plan Discharge Items Patient Disposition: Home - Home Health Services Reason For Visit: Right Hip Arthritis Discharge Diagnosis: Right hip osteoarthritis Activity: As commented below Lifting: None Bathing: Keep incision dry Bathing Comment: May shower tomorrow Sexual Activity: Wait until after follow-up appointment Exercise/Sports: Wait until after follow-up appointment Driving/Machine Use: No driving until cleared by photogrammetric compilation specialist Weightbearing: Full weightbearing Weightbearing Comment: with walker assistance Non-emergency contact: Primary Care Provider Call non-emergency contact if: you have any medication questions, your pain is not controlled, your temperature is above 101.5, your wound has increased redness, your wound has increased drainage and your wound pain has increased Follow-up/Referrals: Bradley Ferrer MD [Primary Care Provider] - Diet: Regular Addtl Attending Provider Instructions: Post-operative Instructions Dear Patient and Family/Friends, Before you are discharged from the hospital, it is important to know what to expect when you get home after surgery. To that end, we have created this sheet of discharge instructions which covers many commonly asked questions. Make sure you go through this sheet in its entirety with your nurse before you are discharged. Please note that we will go over the specifics of your surgery and recovery when you return for your first post-operative visit. Sincerely, Dr. Hdz Medications 1. Aspirin 81 mg: Take aspirin twice daily for 30 days post operatively for blood clot prevention. Please purchase this medication. 2. Oxycodone 5mg: Take 1-2 tabs by mouth every 4-6 hours as needed for pain. A prescription for this medication will be sent to your pharmacy. 3. Diclofenac Sodium 75 mg: Take 1 tab twice daily for 30 days post operatively. A prescription for this medication will be sent to your pharmacy with 1 refill. Do not take Meloxicam or Advil while using this medication 4. Extra Strength Tylenol 500 mg: Take 2 tabs every 6-8 hours as needed for pain. Initially you may take 2 tabs with every other dose of the Oxycodone. Please purchase this medication. Pain Expect to be in a fair amount of pain after surgery. Remember, our goal is not to eliminate your pain, but to make it tolerable. It is a good idea to stay ahead of your pain by taking the medications you were prescribed once you get home. Typically, the pain starts improving 3-7 days after surgery. You should start weaning off the narcotic pain medication (oxycodone, hydrocodone, hydromorphone, morphine) as soon as your pain improves. Please call our office if your pain is not adequately controlled. Ice Ice your operative site at least 5 times a day for 15-30 minutes at a time. Make sure you have a thin cloth between the ice or cooling unit and your skin to prevent paulino bite. This is especially important if you received a nerve block. Continue icing your operative site for the first 5-7 days after surgery, then as needed. Diet/Nausea/Vomiting Start by drinking clear liquids and eating crackers. If you can tolerate this, then you may resume your normal diet. If you feel nauseated or vomit, take Zofran/ondansetron (if prescribed). Please call our office if you have intractable nausea or vomiting, or, if after hours, you may go to the Emergency Room for help. Constipation Constipation is a common side effect of narcotic pain medication. If you have not had a bowel movement within 2 days after surgery, we recommend purchasing an over the counter laxative such as Milk of Magnesia, Dulcolax, or Miralax from a local pharmacy, and taking it as instructed. Call our clinic if any questions. Slings and Braces If you were placed in a sling or brace, it must be worn at all times, including sleep. You may remove your sling or brace for physical therapy, home exercises, and showering. The length of time you will be in your brace and range of motion restrictions depends on what surgery you had; these details will be reviewed at your first post-operative appointment. Nerve block The anesthesia team sometimes places a nerve block to help with post-operative pain control. This results in significant numbness and inability to move the extremity. The nerve block usually wears off in 8-12 hours, but sometimes can last up to 24 hours. Please call our office if you are still unable to move your extremity after 24 hours, unless you received a pain pump to take home. Nerve blocks typically wear off quickly, so start taking pain medication as soon as you start feeling soreness near your surgical site. Weight bearing and Range of Motion. Do not bear any weight through your operative extremity immediately after surgery. If you had upper extremity surgery, do not lift anything with that arm. If you are in a knee brace, keep it locked in place until your follow-up. We will discuss your weight bearing, range of motion, and lifting restrictions in detail at your first post-operative appointment. Continuous Passive Motion (CPM) Machine If you were prescribed a CPM machine, it will start after your first post- operative appointment, at which time we will give you instructions on the range of motion settings and duration of treatment Physical therapy You will be given a prescription for physical therapy or occupational therapy at your first post-operative appointment. Typically, patients start therapy within 1 week of surgery Wound care and showering We will inspect your wound at your first post-operative visit, and may do a dressing change at that time. Most patients will be in a water-proof dressing that is removed 14 days after surgery. It is normal to see some dried blood on the dressing. Do not remove your dressing, paper strips or sutures yourself unless you are given permission. Showering is allowed the day after surgery. Do not scrub or remove any dressings. The wound should not be submerged underwater (i.e. in a bathtub or pool) until 4 weeks after surgery BILLY stockings If you were given white stockings, these are to be worn at all times except to shower (on both legs) for the first 2 weeks after surgery. Driving You may not drive while taking narcotic pain medication or while in a cast, splint, sling or brace. You, the patient, need to make the final determination about when you are safe to drive, however, the earliest you may consider driving after surgery is below: Hand/Wrist/Elbow Surgery: 3 days Shoulder Surgery: 2 weeks Hip,/Knee/Ankle Surgery: 4 weeks Fracture repair: 6 weeks Return to Work Your return to work depends on what surgery was done and what type of work you do. Please bring any paperwork your employer needs completed to your first post-operative visit. Also, bring a description of your job duties, as this helps us to understand what risks you may face at work. Travel Avoid long distance travel (greater than 1 hour) in airplanes and cars for the first 6 weeks after surgery. If you must travel, you need to have a Doppler ultrasound done before you travel to rule out a blood clot in your legs. Follow-up You should have a follow-up appointment already scheduled 1-2 days after surgery. If not, please contact our office to make this appointment before you leave the hospital. When to call the office It is normal to have swelling and bruising in the limb that was operated on. This will improve with time. It is also normal to have fevers for the first 2 days after surgery. Reasons you should call your doctor include: Uncontrolled pain; Nausea, vomiting, or constipation that does not improve with medication; Fevers over 101.5, chills, sweats; Drainage or bleeding from the wound; Foul odor; Spreading areas of redness; Any other concerns Pending Studies at Discharge: No Stand-Alone Forms: My [facility] Medications and DC Order Prescriptions: New oxycodone 5 mg tablet 5 mg PO Q6H PRN (Reason: pain) Qty: 30 RF: 0 diclofenac sodium 75 mg tablet,delayed release (DR/EC) 75 mg PO BID PRN (Reason: pain) 30 Days Qty: 60 RF: 1 Continued pantoprazole 40 mg Tablet,Delayed Release (Dr/Ec) 40 mg PO QAM RF: 0 fluoxetine 20 mg Tablet 40 mg PO QAM RF: 0 loratadine [Claritin] 10 mg Tablet 10 mg PO DAILY PRN (Reason: Congestion) RF: 0 Discontinued ibuprofen [Advil] 200 mg Tablet 800 mg PO DAILY PRN (Reason: Pain) RF: 0 Discharge Orders: Discharge Order (Routine); Ordered 03/10/19 Ordered By: Reji Winters Admission Data Admit Date/Time: 03/09/19 11:24 Attending Provider: Sterling Hdz Admit Provider: Sterling Hdz Primary Care Provider: Bradley Ferrer Other Providers: [facility],Home Healthcare
[2019-03-10 12:04] VITALS: BP 102/56; PULSE 61
== END 2019-03-10 13:36 | disposition home health service (06) | DRG 470 ==
LOC: ASU 07:08 → 3E 11:24